=== PATIENT | male | born 1935 | race Caucasian/White ===

== ENCOUNTER → 2018-01-19 | Outpatient (CLI) | payer MEDICARE ==
[~2018-01-19] MED LIST: ASPIRIN325; ASPIRIN325 PO; CLEOCIN HCL300 MG PO; FLOMAX; FLOMAX0.4 MG PO; LISINOPRIL10 MG PO; NORCO 5-325 TA1 EACH PO; PRINIVIL; SIMVASTATIN20 MG; SIMVASTATIN40 MG PO; TOPROL XL25 MG PO
== END ==
LOC: M.LAB 01:22
DX: R35.8 Other polyuria (principal)

== ENCOUNTER → 2018-06-16 | Outpatient (CLI) | payer MEDICARE ==
[2018-06-16 10:27] LABS: CREATININE 1.3 mg/dL (0.6-1.3)
== END ==
LOC: M.ULTRA 09:35
PROVIDERS: Urology
DX: N28.1 Cyst of kidney, acquired (principal); R97.20 Elevated prostate specific antigen [PSA]; I10 Essential (primary) hypertension; E11.9 Type 2 diabetes mellitus without complications; I25.10 Atherosclerotic heart disease of native coronary artery without angina pectoris; E78.5 Hyperlipidemia, unspecified

== ENCOUNTER → 2020-05-26 | Outpatient (CLI) | payer OTHER ==
[2020-05-26 15:33] LABS: ABSOLUTE EOSINOPHILS 0.4 thou/uL (0.0-0.7); ABSOLUTE LYMPHOCYTES 1.4 thou/uL (0.8-5.3); ABSOLUTE MONOCYTES 0.6 thou/uL (0.0-1.2); ABSOLUTE NEUTROPHILS 4.1 thou/uL (1.6-8.1); BASOPHILS 0.5 %; EOSINOPHILS 6.5 %; HEMATOCRIT 34.4 % (42.0-52.0); HEMOGLOBIN 11.8 gm/dL (14.0-18.0); LYMPHOCYTES 21.7 %; MCHC 34.3 g/dL (28.0-37.0); MCV 93.3 fL (80.0-100.0); MONOCYTES 8.8 %; MPV 8.5 fl. (7.2-11.1); NUCLEATED RBCS 0 /100WBC; PLATELET COUNT* 208 thou/uL (150-400); POLYS 62.5 %; RBC 3.69 mil/uL (4.50-6.00); WBC 6.6 thou/uL (4.0-11.0)
[2020-05-26 16:41] LABS: ESR (SEDRATE) 29 mm/hr (0-20)
== END ==
LOC: M.LAB 15:02
PROVIDERS: ATTEND Ophthalmology
DX: H53.2 Diplopia (principal)